=== PATIENT | male | born 2005 | race African-American/Black ===

== ENCOUNTER 2025-01-18 20:39 | Emergency (ER) | payer SELFPAY ==
[~2025-01-18] VITALS: Ht 175.3 cm; Wt 66.0 kg
[2025-01-18 21:07] VITALS: BP 111/69; PULSE 80; RESP 18; TEMP 36.9; O2SAT 100; O2SAT 98
[2025-01-18 22:21] LABS: CLARITY URINE CLEAR (CLEAR); COLOR URINE YELLOW (YELLOW); GLUCOSE URINE NEGATIVE (NEGATIVE); KETONES URINE NEGATIVE (NEGATIVE); NITRITE URINE NEGATIVE (NEGATIVE); OCCULT BLOOD URINE NEGATIVE (NEGATIVE); PROTEIN URINE NEGATIVE (NEGATIVE)
[2025-01-18 22:22] LABS: LEUKOCYTE ESTERASE URINE NEGATIVE (NEGATIVE); UROBILINOGEN URINE 0.2 E.U./dL (0.2-1.0)
[2025-01-18] MEDS: AZITHROMYCIN 500 MG TABLET PO ONE (23:48)
[2025-01-18] MEDS: CEFTRIAXONE SODIUM 500MG VIAL IM ONE (23:48)
[2025-01-22 04:10] LABS: CHLAMYDIA TRACHOMATIS NAA Negative (Negative); NEISSERIA GONORRHOEAE NAA Negative (Negative)
== END 2025-01-18 23:49 | disposition home or self-care (01) ==
LOC: ER 20:39
DX: Z20.2 Contact with and (suspected) exposure to infections with a predominantly sexual mode of transmission (principal); Z11.8 Encounter for screening for other infectious and parasitic diseases; J45.909 Unspecified asthma, uncomplicated
CPT/HCPCS: 99283; 86592; 87491; 87591; 81003; 96372; J0696